=== PATIENT | male | born 1960 | race Hispanic/Latino ===

== ENCOUNTER 2016-11-01 23:25 | Observation (INO) | payer MEDICAID, OTHER ==
[2016-11-01 23:26] VITALS: BMI 24.7
--- NOTE | 2016-11-01 23:48 | C.PDOC ---
History Of Present Illness Pt was BIBEMS due to public alcohol intoxication. Pt states "I drank too much". Time Seen by Provider: 11/01/16 23:36 Chief Complaint (Nursing): Substance Abuse History Per: Patient, EMS History/Exam Limitations: intoxication Onset/Duration Of Symptoms: Unknown (Tonight) Current Symptoms Are (Timing): Still Present Suicide/Self Injury Attempted (Context): None Modifying Factor(s): Alcohol Severity: Severe Associated Symptoms: denies: Suicidal Thoughts, Suicidal Plan Additional History Per: Prior Records Past Medical History Reviewed: Historical Data, Nursing Documentation, Vital Signs Vital Signs: Last Vital Signs Temp 97.4 F L 11/02/16 04:13 Pulse 77 11/02/16 04:13 Resp 20 11/02/16 04:13 BP 102/57 L 11/02/16 04:13 Pulse Ox 96 11/02/16 04:13 - Medical History Other PMH: Alcohol abuse Family History: States: Unknown Family Hx - Social History Hx Alcohol Use: Yes Hx Substance Use: No - Immunization History Hx Tetanus Toxoid Vaccination: Yes Hx Influenza Vaccination: Yes Hx Pneumococcal Vaccination: Yes Review Of Systems Review Of Systems: ROS cannot be obtained secondary to pt's inabilty to answer questions. Physical Exam - Physical Exam Appears: No Acute Distress, Other (AOB, intoxicated.) Skin: Normal Color, Warm, Dry, No Rash Head: Atraumatic, Normacephalic Eye(s): bilateral: PERRL Neck: Normal ROM, No Midline Cervical Tenderness, No Step Off Deformity, Supple Chest: Symmetrical, No Deformity Cardiovascular: Rhythm Regular Respiratory: Normal Breath Sounds, No Accessory Muscle Use Gastrointestinal/Abdominal: Soft, No Distention Extremity: Normal ROM, No Deformity Neurological/Psych: Eyes Open With Command, Other (Moving all extremities) Pain Response: Withdraws With Pain Gait: Unable To Assess ED Course And Treatment O2 Sat by Pulse Oximetry: 96 Pulse Ox Interpretation: Normal Reassessment Condition: Improved ED OBSERVATION Discharge: Yes Date of observation admission: 11/02/16 Time of observation admission: 00:00 - Observation admission statement Patient is being placed in observation because:: Alcohol intoxication. - Goals of Observation Goals of observation are:: Sobriety. - Progress Note Progress Note: 11/02/16 05:29 Pt was checked every 2 hours and remained stable throughout ED stay. He is now clinically sober. AAOx3. Steady gait. Disposition Counseled Patient/Family Regarding: Diagnosis, Need For Followup - Disposition Disposition: HOME/ ROUTINE Disposition Time: 05:30 Condition: IMPROVED - Clinical Impression Clinical Impression: Alcohol abuse
[2016-11-02 06:15] VITALS: BP 106/61; PULSE 86; RESP 16; TEMP 97.8; O2SAT 98
== END 2016-11-02 05:30 | disposition home or self-care (01) ==
LOC: C.ER 23:25 → C.9OBSV 11-02 00:14
PROVIDERS: ADMIT Emergency Medicine; ATTEND Emergency Medicine
DX: F10.120 Alcohol abuse with intoxication, uncomplicated (principal); Y90.9 Presence of alcohol in blood, level not specified

== ENCOUNTER 2017-04-17 12:40 | Emergency (ER) | payer MEDICAID ==
[2017-04-17 12:41] VITALS: BMI 24.7
[2017-04-17 12:50] VITALS: TEMP 97.6; O2SAT 98
[2017-04-17] MEDS ORDERED: Oxycodone/Acetaminophen 5/325 mg Tab PO STA (13:15)
[2017-04-17] MEDS ORDERED: Oxycodone/Acetaminophen 5/325 mg Tab ONE (13:23)
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
--- NOTE | 2017-04-17 15:07 | RAD ---
Chest and left ribs four views History: Pain. Comparison: None available. Findings: Lung canas are clear. No evidence of pneumothorax. Heart size within normal limits. No evidence of acute displaced rib fracture. Mild productive change at the undersurface of the distal left clavicle. Minimal blunting of the left costophrenic angle. Impression: Negative acute. If pain persists, consider chest CT.
[2017-04-17 15:34] VITALS: BP 120/69; PULSE 72; RESP 17
== END 2017-04-17 15:35 | disposition home or self-care (01) ==
LOC: C.ER 12:40
DX: S20.212A Contusion of left front wall of thorax, initial encounter (principal); W01.198A Fall on same level from slipping, tripping and stumbling with subsequent striking against other object, initial encounter

== ENCOUNTER 2017-04-18 14:32 | Emergency (ER) | payer MEDICAID ==
[2017-04-18 14:44] VITALS: BMI 25.0
[2017-04-18 14:50] VITALS: BP 108/70; PULSE 72; RESP 17; TEMP 97.8; O2SAT 97
--- NOTE | 2017-04-18 15:34 | C.PDOC ---
History Of Present Illness 56 y/o male presents to ED requesting medication refill and complaints of persistent rib pain. Patient was seen yesterday for rib pain s/p tripping and falling. Patient had an xray that was negative and was given Oxycodone. Today patient states "he wants more of the medication he was given yesterday" for pain. No other complaints at this time. Time Seen by Provider: 04/18/17 14:48 Chief Complaint (Nursing): Med Refill History Per: Patient History/Exam Limitations: no limitations Onset/Duration Of Symptoms: Days Current Symptoms Are (Timing): Still Present Past Medical History Reviewed: Historical Data, Nursing Documentation, Vital Signs Vital Signs: Last Vital Signs Temp 97.8 F 04/18/17 14:45 Pulse 72 04/18/17 14:45 Resp 17 04/18/17 14:45 BP 108/70 04/18/17 14:45 Pulse Ox 97 04/18/17 15:34 - Medical History PMH: No Chronic Diseases Surgical History: No Surg Hx Family History: States: No Known Family Hx - Social History Hx Alcohol Use: Yes Hx Substance Use: No - Immunization History Hx Tetanus Toxoid Vaccination: Yes Hx Influenza Vaccination: Yes Hx Pneumococcal Vaccination: Yes Review Of Systems Constitutional: Negative for: Fever, Chills Cardiovascular: Negative for: Chest Pain Respiratory: Negative for: Cough, Shortness of Breath Gastrointestinal: Negative for: Nausea, Vomiting Skin: Negative for: Rash Physical Exam - Physical Exam Appears: Non-toxic, No Acute Distress Skin: Normal Color, Warm, Dry Head: Atraumatic, Normacephalic Eye(s): bilateral: Normal Inspection Oral Mucosa: Moist Neck: Normal ROM, Supple Chest: Symmetrical Cardiovascular: Rhythm Regular, No Murmur Respiratory: Normal Breath Sounds, No Rales, No Rhonchi, No Wheezing Extremity: Normal ROM, Capillary Refill (<2 seconds) Neurological/Psych: Oriented x3 ED Course And Treatment O2 Sat by Pulse Oximetry: 97 (RA) Pulse Ox Interpretation: Normal Disposition Counseled Patient/Family Regarding: Diagnosis, Need For Followup, Rx Given - Disposition Referrals: [facility] at [facility] [Outside] Disposition: HOME/ ROUTINE Disposition Time: 15:32 Condition: STABLE Additional Instructions: Take ibuprofen as prescribed. Follow up in medical clinic. Avoid strenuous activity untill rib feeling better. Cold compresses onto area when possible. Prescriptions: Ibuprofen [Motrin] 600 mg PO TID #30 tab Instructions: Rib Contusion (ED) Forms: [facility] (Danish), General Discharge Instructions - Clinical Impression Clinical Impression: Rib contusion - PA / UNDERTAKER ASSISTANT / Resident Statement MD/DO has reviewed & agrees with the documentation as recorded. - Scribe Statement The provider has reviewed the documentation as recorded by the Gabeibmanohar Wilkes All medical record entries made by the Gabeibmanohar were at my direction and personally dictated by me. I have reviewed the chart and agree that the record accurately reflects my personal performance of the history, physical exam, medical decision making, and the department course for this patient. I have also personally directed, reviewed, and agree with the discharge instructions and disposition.
== END 2017-04-18 15:50 | disposition home or self-care (01) ==
LOC: C.ER 14:32 → SUPCPDRO 14:32 → C.ER 15:50
DX: S20.219D Contusion of unspecified front wall of thorax, subsequent encounter (principal); W01.0XXD Fall on same level from slipping, tripping and stumbling without subsequent striking against object, subsequent encounter

== ENCOUNTER 2017-08-05 20:29 | Emergency (ER) | payer MEDICAID ==
[2017-08-05 20:29] VITALS: BMI 25.0
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
[2017-08-05 23:16] VITALS: RESP 18
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
[2017-08-06 02:23] VITALS: BP 125/70; PULSE 82; TEMP 97.6
[2017-08-06 04:11] VITALS: O2SAT 95
== END 2017-08-06 06:35 | disposition home or self-care (01) ==
LOC: C.ER 20:29
DX: F10.120 Alcohol abuse with intoxication, uncomplicated (principal); Y90.9 Presence of alcohol in blood, level not specified

== ENCOUNTER 2017-08-07 09:36 | Emergency (ER) | payer MEDICAID ==
[2017-08-07 09:36] VITALS: BMI 25.0
[2017-08-07 10:00] VITALS: BP 138/81; PULSE 89; RESP 18; TEMP 98.3; O2SAT 98
[2017-08-07] MEDS ORDERED: Naproxen 550 mg Tab PO STA (12:21)
[2017-08-07] MEDS ORDERED: Naproxen 550 mg Tab PO ONE (12:25)
--- NOTE | 2017-08-07 13:24 | RAD ---
Left hand three views History: Fracture. Comparison: None available. Findings: Soft tissue swelling noted at the base of the 1st metacarpal bone. Degenerative changes at the 1st carpometacarpal joint space. Mild degenerative changes at the 1st MCP joint space with subluxation and subchondral cyst formation. Clinical correlation. Rounded radiopaque density seen at the level of the 4th metacarpal head at the volar aspect which may represent a foreign body. Clinical correlation. Degenerative changes at the 2nd through 4th PIP and DIP joint spaces. Impression: Soft tissue swelling noted at the base of the 1st metacarpal bone. Degenerative changes at the 1st carpometacarpal joint space. Mild degenerative changes at the 1st MCP joint space with subluxation and subchondral cyst formation. Clinical correlation. Rounded radiopaque density seen at the level of the 4th metacarpal head at the volar aspect which may represent a foreign body. Clinical correlation. Degenerative changes at the 2nd through 4th PIP and DIP joint spaces. If pain persists, consider MRI.
--- NOTE | 2017-08-07 13:53 | C.PDOC ---
History Of Present Illness Pt states he injured his left hand 2 days ago. Time Seen by Provider: 08/07/17 11:01 Chief Complaint (Nursing): Finger,Hand,&Wrist History Per: Patient Onset/Duration Of Symptoms: Days (2) Current Symptoms Are (Timing): Still Present Quality: "Pain" Severity: Moderate Hands/Wrist (Pic): 1 - pain/swelling Additional History Per: Prior Records Past Medical History Reviewed: Historical Data, Nursing Documentation, Vital Signs Vital Signs: Last Vital Signs Temp 98.3 F 08/07/17 09:57 Pulse 89 08/07/17 09:57 Resp 18 08/07/17 09:57 BP 138/81 08/07/17 09:57 Pulse Ox 98 08/07/17 09:57 - Medical History PMH: No Chronic Diseases Family History: States: Unknown Family Hx - Social History Hx Alcohol Use: Yes Hx Substance Use: No - Immunization History Hx Tetanus Toxoid Vaccination: Yes Hx Influenza Vaccination: Yes Hx Pneumococcal Vaccination: No Review Of Systems Except As Marked, All Systems Reviewed And Found Negative. Constitutional: Negative for: Fever Cardiovascular: Negative for: Chest Pain Respiratory: Negative for: Shortness of Breath Gastrointestinal: Negative for: Vomiting, Abdominal Pain Musculoskeletal: Negative for: Neck Pain Skin: Positive for: Bruising Neurological: Negative for: Weakness, Numbness Physical Exam - Physical Exam Appears: Non-toxic, No Acute Distress Skin: Normal Color, Warm, Dry Head: Atraumatic, Normacephalic Eye(s): bilateral: PERRL, EOMI Neck: Normal ROM, Supple Extremity: Normal ROM, Tenderness (around base of left thumb with swelling and bruising), Capillary Refill (wnl) Pulses: Left Radial: Normal Neurological/Psych: Oriented x3, Normal Motor, Normal Sensation ED Course And Treatment O2 Sat by Pulse Oximetry: 98 Pulse Ox Interpretation: Normal - Other Rad Left hand x-rays X-Ray: Viewed By Me, Read By Radiologist Interpretation: Impression: Soft tissue swelling noted at the base of the 1st metacarpal bone. Degenerative changes at the 1st carpometacarpal joint space. Mild degenerative changes at the 1st MCP joint space with subluxation and subchondral cyst formation. Clinical correlation. Rounded radiopaque density seen at the level of the 4th metacarpal head at the volar aspect which may represent a foreign body. Clinical correlation. Degenerative changes at the 2nd through 4th PIP and DIP joint spaces. Progress Note: Pt's left hand was placed in thumb spica splint by dairy lab technician and checked by me. Reassessment Condition: Improved Disposition Counseled Patient/Family Regarding: Studies Performed, Diagnosis, Need For Followup, Rx Given - Disposition Referrals: Anastacia Martin MD [Staff Provider] - Disposition: HOME/ ROUTINE Disposition Time: 13:56 Condition: FAIR Additional Instructions: Keep splint clean and dry. Follow up with a Hand specialist within 1-2 weeks for further evaluation and treatment. Return to the ER if you develop worsening of symptoms or if you have any other concerns. Prescriptions: Naproxen [Naprosyn] 500 mg PO BID PRN #14 tablet PRN Reason: Pain, Mild (1-3) Instructions: Splint Care (ED) - Clinical Impression Clinical Impression: Left thumb sprain, Contusion of left hand
== END 2017-08-07 14:01 | disposition home or self-care (01) ==
LOC: C.ER 09:36
DX: S63.602A Unspecified sprain of left thumb, initial encounter (principal); S60.222A Contusion of left hand, initial encounter; X58.XXXA Exposure to other specified factors, initial encounter; Y92.9 Unspecified place or not applicable

== ENCOUNTER → 2017-08-28 23:47 | Emergency (ER) | payer MEDICAID ==
[2017-08-28 23:48] VITALS: BMI 25.0
== END | disposition left against medical advice (07) ==
LOC: C.ER 23:47
DX: Z02.89 Encounter for other administrative examinations (principal); F19.10 Other psychoactive substance abuse, uncomplicated

== ENCOUNTER 2017-10-06 09:02 | Emergency (ER) | payer MEDICAID ==
[2017-10-06 09:04] VITALS: BMI 25.0
[2017-10-06 09:14] VITALS: BP 122/73; PULSE 84; RESP 19; TEMP 97.9; O2SAT 96
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
--- NOTE | 2017-10-06 10:30 | RAD ---
PROCEDURE: Right Hand Radiographs. HISTORY: hand injury COMPARISON: None. FINDINGS: BONES: Normal. No fracture. JOINTS: Normal. No osteoarthritic changes. SOFT TISSUES: Normal. OTHER FINDINGS: None. IMPRESSION: Normal right hand radiographs.
== END 2017-10-06 10:33 | disposition home or self-care (01) ==
LOC: C.ER 09:02
DX: S69.91XA Unspecified injury of right wrist, hand and finger(s), initial encounter (principal); W22.8XXA Striking against or struck by other objects, initial encounter
CPT/HCPCS: 73130; 96372; 99284; J1885

== ENCOUNTER 2017-10-22 13:04 | Emergency (ER) | payer MEDICAID ==
[2017-10-22 13:05] VITALS: BMI 25.0
[2017-10-22 13:23] VITALS: BP 129/76; PULSE 92; RESP 20; TEMP 97.9; O2SAT 96
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
== END 2017-10-22 14:02 | disposition home or self-care (01) ==
LOC: C.ER 13:04
DX: Z51.89 Encounter for other specified aftercare (principal)

== ENCOUNTER 2018-01-06 00:25 | Emergency (ER) | payer MEDICAID ==
[2018-01-06 00:25] VITALS: BMI 25.0
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
[2018-01-06 03:02] VITALS: BP 138/79; PULSE 84; RESP 18; TEMP 98.7; O2SAT 100
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
== END 2018-01-06 03:37 | disposition home or self-care (01) ==
LOC: C.ER 00:25
DX: S02.2XXA Fracture of nasal bones, initial encounter for closed fracture (principal); Y08.89XA Assault by other specified means, initial encounter; Y92.9 Unspecified place or not applicable

== ENCOUNTER 2018-02-04 01:25 | Emergency (ER) | payer MEDICAID ==
[2018-02-04 01:25] VITALS: BMI 25.0
--- NOTE | 2018-02-04 01:35 | C.PDOC ---
History Of Present Illness The patient presents to the ED for evaluation of right lower quadrant abdominal pain. Patient states the pain has been intermittent for the past couple years, but has been worsening over this past week. Patient denies fever, chills, nausea and vomiting. Time Seen by Provider: 02/04/18 01:34 Chief Complaint (Nursing): Abdominal Pain History Per: Patient History/Exam Limitations: no limitations Onset/Duration Of Symptoms: Days, Intermittent Episodes (couple years ) Current Symptoms Are (Timing): Worse Severity: Mild Pain Scale Rating Of: 3 Location Of Pain/Discomfort: RLQ Radiation Of Pain To:: None Quality Of Discomfort: "Pain" Associated Symptoms: denies: Fever, Chills, Nausea, Vomiting Exacerbating Factors: None Alleviating Factors: None Last Bowel Movement: Today Recent travel outside of the [place]: No Additional History Per: Patient Past Medical History Reviewed: Historical Data, Nursing Documentation, Vital Signs Vital Signs: Last Vital Signs Temp 97.6 F 02/04/18 05:11 Pulse 54 L 02/04/18 05:11 Resp 16 02/04/18 05:11 BP 109/66 02/04/18 05:11 Pulse Ox 98 02/04/18 05:47 - Medical History PMH: No Chronic Diseases Surgical History: No Surg Hx Family History: States: Unknown Family Hx - Social History Hx Tobacco Use: Yes (former smoker) Hx Alcohol Use: Yes Hx Substance Use: No - Immunization History Hx Tetanus Toxoid Vaccination: Yes Hx Influenza Vaccination: Yes Hx Pneumococcal Vaccination: No Review Of Systems Constitutional: Negative for: Fever, Chills Cardiovascular: Negative for: Chest Pain, Palpitations Respiratory: Negative for: Cough, Shortness of Breath Gastrointestinal: Positive for: Abdominal Pain (right lower quadrant ). Negative for: Nausea, Vomiting, Diarrhea Musculoskeletal: Negative for: Back Pain Skin: Negative for: Rash, Lesions, Jaundice, Bruising Neurological: Negative for: Weakness, Numbness Psych: Negative for: Anxiety Physical Exam - Physical Exam Appears: Non-toxic, No Acute Distress Skin: Warm, Dry Head: Normacephalic Eye(s): bilateral: Normal Inspection Oral Mucosa: Moist Neck: Supple Chest: Symmetrical, No Deformity, No Tenderness Cardiovascular: Rhythm Regular Respiratory: No Rales, No Rhonchi, No Wheezing Gastrointestinal/Abdominal: Soft, Tenderness (right lower quadrant ), No Guarding, No Rebound Back: Normal Inspection Extremity: Normal ROM, Capillary Refill (less than 2 seconds ) Neurological/Psych: Oriented x3 Gait: Steady ED Course And Treatment - Laboratory Results Result Diagrams: 02/04/18 01:53 02/04/18 01:53 O2 Sat by Pulse Oximetry: 98 (on RA) Pulse Ox Interpretation: Normal - CT Scan/US CT A/P Other Rad Studies (CT/US): Read By Radiologist, Radiology Report Reviewed CT/US Interpretation: EXAM: CT Abdomen and Pelvis With Intravenous Contrast. EXAM DATE/TIME: 02/04/2018 1:36 AM. CLINICAL HISTORY: 57 years old, male; Pain ; Abdominal pain; Other: Rlq; Additional info: Rlq abd pain. TECHNIQUE: Axial computed tomography images of the abdomen and pelvis with intravenous contrast. All CT scans at this facility use at least one of these dose optimization techniques: automated. exposure control; mA and/or kV adjustment per patient size (includes targeted exams where dose is. matched to clinical indication); or iterative reconstruction. CONTRAST: 100 ml of Visipaque 320 administered intravenously. COMPARISON: No relevant prior studies available. FINDINGS: The liver, spleen and pancreas are normal. The gallbladder is contracted and contains a gallstone. No definite pericholecystic inflammation. identified. No hydronephrosis or perinephric stranding. Colonic diverticulosis is present. A normal appendix is identified coronal images 43 through 57. IMPRESSION: Cholelithiasis. Progress Note: Bloodwork, urinalysis, CT A/P ordered. Toradol IVP, Zofran IVP and IV Fluids given. Reevaluation Time: 05:47 Reassessment Condition: Improved Disposition Counseled Patient/Family Regarding: Studies Performed, Diagnosis, Need For Followup - Disposition Referrals: [facility] [Outside] [facility] [Outside] Disposition: HOME/ ROUTINE Disposition Time: 01:35 Condition: FAIR Additional Instructions: Please return if symptoms recur Instructions: Gallstones (DC) Forms: [facility] (Hungarian) - Clinical Impression Clinical Impression: Abdominal pain, Gallstone - Scribe Statement The provider has reviewed the documentation as recorded by the Scribe (Concha Easton) Provider Attestation: All medical record entries made by the Scribe were at my direction and personally dictated by me. I have reviewed the chart and agree that the record accurately reflects my personal performance of the history, physical exam, medical decision making, and the department course for this patient. I have also personally directed, reviewed, and agree with the discharge instructions and disposition.
[2018-02-04] MEDS ORDERED: Sodium Chloride 0.9% 1,000 ML IV ONE (01:36)
[2018-02-04 01:37] VITALS: RESP 16
[2018-02-04] MEDS ORDERED: Iodixanol 320 MG/ML 100 ML BOTTLE IV ONE (01:43)
[2018-02-04] MEDS ORDERED: Sodium Chloride 0.9% 1,000 ML ONE (02:00)
[2018-02-04 02:03] LABS: BASO # 0.1 K/uL (0.0-0.2); BASO % 1.3 % (0.0-2.0); EOS # 0.1 K/uL (0.0-0.7); EOS % 1.3 % (0.0-4.0); HEMOGLOBIN 13.5 g/dL (12.0-18.0); LYMPH % 20.4 % (20.0-40.0); MEAN CELL VOLUME 84.8 fL (80.0-94.0); MEAN CORPUSCULAR HEMOGLOBIN 28.9 pg (27.0-31.0); MEAN CORPUSCULAR HGB CONC 34.1 g/dL (33.0-37.0); MEAN PLATELET VOLUME 7.2 fL (7.2-11.7); MONO % 10.5 % (0.0-10.0); RBC 4.65 Mil/uL (4.40-5.90); RED CELL DISTRIBUTION WIDTH 14.2 % (11.5-14.5); WHITE BLOOD COUNT 9.6 K/uL (4.8-10.8)
[2018-02-04 02:07] LABS: PROTHROMBIN TIME 10.5 SECONDS (9.7-12.2)
[2018-02-04 02:34] LABS: SQUAMOUS EPITHIAL < 1 /hpf (0-5); URINE BACTERIA RARE (<OCC); URINE BILIRUBIN NEGATIVE (NEGATIVE); URINE BLOOD NEGATIVE (NEGATIVE); URINE CLARITY Clear (Clear); URINE COLOR Yellow (YELLOW); URINE GLUCOSE (UA) NORMAL (Normal); URINE LEUKOCYTE ESTERASE NEG Leu/uL (Negative); URINE PROTEIN NEGATIVE (NEGATIVE); URINE UROBILINOGEN NORMAL mg/dL (0.2-1.0)
[2018-02-04 03:29] LABS: BLOOD UREA NITROGEN 20 mg/dL (9-20); GFR AFRICAN-AMERICAN > 60; GFR NON-AFRICAN AMERICAN > 60
[2018-02-04 03:30] LABS: ALB/GLOB RATIO 1.6 (1.0-2.1); ALBUMIN 4.1 g/dL (3.5-5.0); ALT/SGPT 29 U/L (21-72); AST/SGOT 29 U/L (17-59); CALCIUM 9.2 mg/dl (8.6-10.4); LIPASE 71 U/L (23-300)
[2018-02-04 06:04] VITALS: BP 118/75; PULSE 64; TEMP 97.5; O2SAT 100
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
== END 2018-02-04 06:13 | disposition home or self-care (01) ==
LOC: C.ER 01:25
DX: K80.20 Calculus of gallbladder without cholecystitis without obstruction (principal)
CPT/HCPCS: 74177; 80053; 80320; 81001; 83690; 85025; 85610; 85730; 96361; 96374; 96375; 99285; J1885; J2405; J7030; Q9967

== ENCOUNTER 2018-05-04 15:57 | Emergency (ER) | payer MEDICAID ==
[2018-05-04 15:57] VITALS: BMI 25.0
[2018-05-04 16:06] VITALS: O2SAT 98
[2018-05-04] MEDS ORDERED: Sodium Chloride 0.9% 1,000 ML IV ONE (16:39)
[2018-05-04] MEDS ORDERED: Iohexol 240 (50 ml) PO STA (16:39)
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
--- NOTE | 2018-05-04 17:25 | RAD ---
Date of service: 05/04/2018 PROCEDURE: Radiographs of the chest and abdomen (obstructive series) HISTORY: Abdominal pain COMPARISON: No prior. TECHNIQUE: AP radiograph of the chest, with upright and supine radiographs of the abdomen. FINDINGS: CHEST: Lungs: Clear. Cardiovascular: Normal size heart. No pulmonary vascular congestion. Pleura: No pleural fluid. No pneumothorax. Other findings: None. ABDOMEN AND PELVIS: Bowel: Constipation without fecal impaction or obstruction. Free air: None. Bones: Unremarkable. Other findings: None. IMPRESSION: Constipation without mechanical obstruction. Otherwise unremarkable study.
[2018-05-04 17:39] LABS: BASO # 0.1 K/uL (0.0-0.2); BASO % 0.8 % (0.0-2.0); EOS % 0.3 % (0.0-4.0); HEMOGLOBIN 12.9 g/dL (12.0-18.0); LYMPH # 2.1 K/uL (1.0-4.3); LYMPH % 13.9 % (20.0-40.0); MEAN CELL VOLUME 85.8 fL (80.0-94.0); MEAN CORPUSCULAR HEMOGLOBIN 28.8 pg (27.0-31.0); MEAN CORPUSCULAR HGB CONC 33.5 g/dL (33.0-37.0); MEAN PLATELET VOLUME 7.2 fL (7.2-11.7); MONO # 1.3 K/uL (0.0-0.8); MONO % 8.7 % (0.0-10.0); NEUT # 11.4 K/uL (1.8-7.0); NEUT % 76.3 % (50.0-75.0); RBC 4.47 Mil/uL (4.40-5.90); RED CELL DISTRIBUTION WIDTH 14.4 % (11.5-14.5)
[2018-05-04 17:40] LABS: WHITE BLOOD COUNT 14.9 K/uL (4.8-10.8)
[2018-05-04 17:41] LABS: URINE BILIRUBIN NEGATIVE (NEGATIVE); URINE BLOOD NEGATIVE (NEGATIVE); URINE CLARITY Clear (Clear); URINE COLOR Yellow (YELLOW); URINE GLUCOSE (UA) NORMAL (Normal); URINE LEUKOCYTE ESTERASE NEG Leu/uL (Negative); URINE PROTEIN NEGATIVE (NEGATIVE)
[2018-05-04] MEDS ORDERED: Sodium Chloride 0.9% 1,000 ML ONE (17:43)
[2018-05-04] MEDS ORDERED: Morphine 4 MG/ML VIAL ONE (17:43)
[2018-05-04] MEDS ORDERED: Iohexol 240 (50 ml) ONE (17:43)
[2018-05-04 17:49] VITALS: TEMP 98.2
[2018-05-04 17:50] LABS: ALB/GLOB RATIO 1.6 (1.0-2.1); ALBUMIN 4.4 g/dL (3.5-5.0); ALT/SGPT 19 U/L (21-72); AST/SGOT 38 U/L (17-59); BLOOD UREA NITROGEN 24 mg/dL (9-20); CALCIUM 9.6 mg/dl (8.6-10.4); GFR NON-AFRICAN AMERICAN > 60; LIPASE 60 U/L (23-300)
[2018-05-04 17:55] LABS: BARBITURATES, UR NEGATIVE (NEGATIVE); OPIATES, UR NEGATIVE (NEGATIVE); PHENCYCLIDINE, UR NEGATIVE (NEGATIVE)
[2018-05-04 17:59] LABS: BENZODIAZEPINES, UR POSITIVE (NEGATIVE)
[2018-05-04] MEDS ORDERED: Iodixanol 320 MG/ML 100 ML BOTTLE IV ONE (18:24)
--- NOTE | 2018-05-04 19:22 | CT ---
Date of service: 05/04/2018 PROCEDURE: CT Abdomen and Pelvis with Oral contrast. HISTORY: Abdominal pain COMPARISON: None. TECHNIQUE: Contiguous axial images of the abdomen and pelvis. Oral contrast was administered. No IV contrast given. Coronal and Sagittal reformats generated. Radiation dose: Total exam DLP = 371.56 mGy-cm. This CT exam was performed using one or more of the following dose reduction techniques: Automated exposure control, adjustment of the mA and/or kV according to patient size, and/or use of iterative reconstruction technique. FINDINGS: LOWER THORAX: Unremarkable. LIVER: Liver exhibits relatively normal size measuring nearly 18 cm in CC dimension. There is a very tiny sub cm low-attenuation focus in the superior aspect right lobe liver near the dome which appears to be unchanged from prior exam. GALLBLADDER AND BILE DUCTS: Gallbladder is physiologically distended. Redemonstrated is a intraluminal gallbladder calculus. Common bile duct is remains mildly dilated. PANCREAS: The pancreas appears unremarkable without obvious masses collections or calcifications.. SPLEEN: Spleen exhibits normal size and attenuation pattern without mass collection or calcification. ADRENALS: There are no adrenal lesions. KIDNEYS AND URETERS: Unremarkable. No stone or hydronephrosis. BLADDER: Urinary bladder is incompletely distended which in part accounts for thick-walled appearance. Muscular hypertrophy can presumably contributes.. There is also a more localized nodular enhancing density in the posterior inferior lumen of the urinary bladder that may represent some debris however possibility of a a exophytic endoluminal wall lesion including but not limited to transitional cell carcinoma. Recommend follow-up urologic consultation REPRODUCTIVE: Prostate gland measures approximately 4.5 cm in transverse dimension. Findings likely due to BPH however correlation with PSA recommended APPENDIX: What appears to represent normal appendix is best seen on axial image number [id number]. BOWEL: Evaluation of the bowel is somewhat limited due to incomplete opacification. The stomach is incompletely distended. The visualized loops of small bowel exhibit normal contour and caliber. No evidence of acute mechanical small bowel obstruction. There is a large amount of stool seen throughout the colon suggesting fecal retention/constipation. PERITONEUM: Unremarkable. No fluid collection. No free air. LYMPH NODES: Unremarkable. No enlarged lymph nodes. VASCULATURE: Mild aortic atherosclerotic calcification and mural plaque present. BONES: Mild multilevel degenerative spondylosis of the lower thoracic and lumbar spine. There are no acute compression fractures no retropulsed fragments. OTHER FINDINGS: None. IMPRESSION: Redemonstrated is cholelithiasis.. Minimal central intrahepatic biliary ductal dilatation. Tiny nonspecific focus on left lobe liver too small to characterize unchanged from prior exam Radiology There is a small rounded soft tissue density which appears to arise from the posterior inferior a floor of the urinary bladder extending into the lumen. While this could represent some debris the possibility of a lesion of iraheta in from the bladder wall must be excluded. Follow-up of urologic consultation recommended. Findings consistent with constipation. Note that these findings discussed with Dr. Pearce at approximately 7:15 p.m. with written down and read back verification
[2018-05-04 19:59] VITALS: BP 122/67; PULSE 67; RESP 16
== END 2018-05-04 19:58 | disposition home or self-care (01) ==
LOC: C.ER 15:57
DX: R10.9 Unspecified abdominal pain (principal); K59.00 Constipation, unspecified
CPT/HCPCS: 74022; 74177; 80053; 80324; 80345; 80346; 80349; 80353; 80358; 80361; 81001; 83690; 83992; 85025; 96361; 96374; 99285; J2270; J7030; Q9966; Q9967

== ENCOUNTER 2018-09-14 21:16 | Emergency (ER) | payer MEDICAID ==
[2018-09-14 21:30] VITALS: BMI 22.8
[2018-09-14] MEDS ORDERED: Lidocaine 1% w Epi 1:100,000 Inj INJ STA (22:16)
[2018-09-14] MEDS ORDERED: Bacitracin 500 Units/gm Oint Foilpak UD TOP STA (22:16)
[2018-09-14] MEDS ORDERED: Tetanus/Diphtheria Toxoids 0.5 ml Syringe IM ONE ×2 (22:17→23:17)
[2018-09-14] MEDS ORDERED: Bacitracin 500 Units/gm Oint Foilpak UD ONE (22:58)
[2018-09-14] MEDS ORDERED: Lidocaine 5% Patch TD ONE (23:07)
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
[2018-09-15] MEDS ORDERED: Bacitracin 500 Units/gm Oint Foilpak UD ONE (00:36)
[2018-09-15 01:21] VITALS: BP 113/67; PULSE 72; RESP 18; TEMP 98.1
[2018-09-15 05:18] VITALS: O2SAT 96
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
== END 2018-09-15 01:24 | disposition home or self-care (01) ==
LOC: C.ER 21:16
DX: S01.01XA Laceration without foreign body of scalp, initial encounter (principal); S01.81XA Laceration without foreign body of other part of head, initial encounter; Y04.0XXA Assault by unarmed brawl or fight, initial encounter; Z87.891 Personal history of nicotine dependence

== ENCOUNTER 2018-09-23 15:07 | Emergency (ER) | payer MEDICAID ==
[2018-09-23 15:07] VITALS: BMI 22.8
[2018-09-23 15:26] VITALS: BP 129/80; TEMP 98.3
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
[2018-09-23 18:17] VITALS: PULSE 80; RESP 19
[2018-09-23 20:04] VITALS: O2SAT 97
== END 2018-09-23 18:16 | disposition home or self-care (01) ==
LOC: C.ER 15:07
DX: Z48.02 Encounter for removal of sutures (principal)

== ENCOUNTER 2018-11-24 00:06 | Emergency (ER) | payer MEDICAID ==
[2018-11-24 00:07] VITALS: BMI 22.8
[2018-11-24 00:33] VITALS: TEMP 98.5
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
[2018-11-24 01:54] VITALS: BP 132/71; PULSE 87; RESP 19
[2018-11-24 05:26] VITALS: O2SAT 98
== END 2018-11-24 01:54 | disposition home or self-care (01) ==
LOC: C.ER 00:06
DX: S01.112A Laceration without foreign body of left eyelid and periocular area, initial encounter (principal); S00.83XA Contusion of other part of head, initial encounter; Y09 Assault by unspecified means; Z87.891 Personal history of nicotine dependence